=== PATIENT | male | born 1965 | race Caucasian/White ===

== ENCOUNTER → 2023-06-02 | Outpatient (CLI) | payer BC ==
[~2023-06-02] MED LIST: LOSA50TA28 PO; METF500T13 PO; PROA1AER2 INH; ROSU5TAB5 PO
[2023-06-02 08:02] LABS: BASO # 0.1 10^3/uL (0.0-0.2); BASO % 0.7 % (0.0-1.0); EOS # 0.1 10^3/uL (0.0-0.5); EOS % 0.7 % (0.0-3.0); HEMATOCRIT 45.1 % (42.0-52.0); HEMOGLOBIN 15.6 g/dl (13.5-17.5); LYMPH # 2.3 10^3/uL (1.5-5.0); LYMPH % 26.8 % (24.0-44.0); MEAN CORPUSCULAR HEMOGLOBIN 30.4 pg (27.0-33.0); MEAN CORPUSCULAR HGB CONC 34.6 g/dl (32.0-36.5); MEAN CORPUSCULAR VOLUME 87.9 fl (80.0-96.0); MONO # 0.5 10^3/uL (0.0-0.8); MONO % 5.4 % (2.0-8.0); NEUTROPHILS # 5.6 10^3/uL (1.5-8.5); PLATELET COUNT, AUTOMATED 172 10^3/uL (150-450); RED BLOOD COUNT 5.13 10^6/uL (4.30-6.10); WHITE BLOOD COUNT 8.5 10^3/uL (4.0-10.0)
[2023-06-02 08:28] LABS: BLOOD UREA NITROGEN 15 MG/DL (9-23); CARBON DIOXIDE LEVEL 28 MMOL/L (20-31); CHLORIDE LEVEL 103 MMOL/L (98-107); CREATININE FOR GFR 0.96 MG/DL (0.70-1.30); GLOMERULAR FILTRATION RATE > 60.0 (>56); GLUCOSE, FASTING 198 MG/DL (60-100); POTASSIUM SERUM 3.6 MMOL/L (3.5-5.1); SODIUM LEVEL 139 MMOL/L (136-145)
== END ==
LOC: M LAB 06:55
PROVIDERS: ATTEND Podiatrist
DX: M20.41 Other hammer toe(s) (acquired), right foot (principal)

== ENCOUNTER 2023-06-06 07:20 | Day surgery (SDC) | payer BC ==
[~2023-06-06] VITALS: Ht 188 cm; Wt 110.7 kg
[2023-06-06] MEDS ORDERED: ONDANSETRON 4MG 2ML VIAL As Ordered ONE (07:52)
[2023-06-06] MEDS ORDERED: LIDOCAINE 2% 100MG/5ML SDV (FOR ANES.) As Ordered ONE (07:52)
[2023-06-06] MEDS ORDERED: propofoL 200 MG/20 ML VIAL As Ordered ONE (07:52)
[2023-06-06] MEDS ORDERED: fentaNYL 100 MCG/2 ML INJECTION As Ordered ONE (07:52)
[2023-06-06] MEDS ORDERED: MIDAZOLAM INJ 2MG/2ML VIAL As Ordered ONE (07:52)
[2023-06-06] MEDS: LR 1,000 ML IV SCH (08:21)
[2023-06-06] MEDS: INSULIN LISPRO (NovoLOG) PER UNIT SC PRN (08:38)
[2023-06-06] MEDS: ceFAZolin SOD 2 GM in IV 1 EA IV ONE (09:14)
[2023-06-06] MEDS ORDERED: ACETAMINOPHEN 1000MG 100ML IV BAG As Ordered ONE (09:26)
[2023-06-06] MEDS: GENTAMICIN SULF 80MG/2ML VIAL As Ordered ONE (09:36)
[2023-06-06] MEDS ORDERED: KETOROLAC 60MG 2ML VIAL As Ordered ONE (09:36)
[2023-06-06] MEDS: LIDOCAINE 2% MDV 20ML VIAL As Ordered ONE (10:28)
[2023-06-06] MEDS ORDERED: PHENYLephrine 500MCG 5ML (100MCG/ML) SYRINGE As Ordered ONE (10:42)
[2023-06-06] MEDS ORDERED: ePHEDrine SULFATE 25 MG/5 ML(5MG/ML) SYRINGE As Ordered ONE (10:45)
[2023-06-06 11:44] VITALS: BP 128/74; TEMP 97.7; O2SAT 97
== END 2023-06-06 12:04 | disposition home or self-care (01) ==
LOC: M SDC 07:20
PROVIDERS: ATTEND Podiatrist
DX: M20.41 Other hammer toe(s) (acquired), right foot (principal); E11.9 Type 2 diabetes mellitus without complications; Z79.899 Other long term (current) drug therapy
CPT/HCPCS: 28270; 28285; 73630; 76000; 88300; J0131; J0665; J0690; J1100; J1580; J1815; J1885; J2250; J2371; J2405; J3010

== ENCOUNTER → 2024-03-04 | Outpatient (CLI) | payer BC ==
[~2024-03-04] MED LIST changes: +ROSU5TAB49 PO; -ROSU5TAB5 PO
== END ==
LOC: M SLEEP 20:00
PROVIDERS: ATTEND Physician Assistant
DX: R06.83 Snoring (principal)

== ENCOUNTER → 2024-04-15 | Outpatient (CLI) | payer BC | LOC: M WUC 14:32 | PROVIDERS: ATTEND Student in an Organized Health Care Education/Training Program | DX: J20.9 Acute bronchitis, unspecified (principal) ==

== ENCOUNTER 2024-06-10 19:04 | Emergency (ER) | payer BC ==
[~2024-06-10] VITALS: Ht 188 cm; Wt 106.7 kg
[2024-06-10] MEDS ORDERED: FLON1SPR NARES (19:15)
[2024-06-10] MEDS ORDERED: NS 500 ML IV ONE (19:40)
[2024-06-10] MEDS: ACETAMINOPHEN 325 MG TAB PO ONE (20:23)
[2024-06-10] MEDS: NS (Normal Saline) 0.9% 1,000 ML IV ONE (20:24)
[2024-06-10 20:28] LABS: BASO # 0.1 10^3/uL (0.0-0.2); BASO % 0.4 % (0.0-1.0); EOS # 0.1 10^3/uL (0.0-0.5); EOS % 0.4 % (0.0-3.0); HEMATOCRIT 40.4 % (42.0-52.0); HEMOGLOBIN 14.4 g/dl (13.5-17.5); LYMPH % 7.3 % (24.0-44.0); MEAN CORPUSCULAR HEMOGLOBIN 31.4 pg (27.0-33.0); MEAN CORPUSCULAR HGB CONC 35.6 g/dl (32.0-36.5); MONO # 0.3 10^3/uL (0.0-0.8); MONO % 2.3 % (2.0-8.0); NEUTROPHILS # 12.3 10^3/uL (1.5-8.5); NEUTROPHILS % 89.2 % (36.0-66.0); PLATELET COUNT, AUTOMATED 162 10^3/uL (150-450); RED BLOOD COUNT 4.59 10^6/uL (4.30-6.10); WHITE BLOOD COUNT 13.7 10^3/uL (4.0-10.0)
[2024-06-10 20:41] LABS: KETONE, URINE AUTO RFX 1+ mg/dL (NEGATIVE); LEUKOCYTE ESTERASE UR AUTO RFX NEGATIVE (NEGATIVE); NITRITE, URINE AUTO RFX NEGATIVE (NEGATIVE); RBC, URINE AUTO RFX 0 /HPF (0-3); SQUAM EPITHELIAL CELL UR AURFX 0 /HPF (0-6); WBC, URINE AUTO RFX 0 /HPF (0-3)
[2024-06-10 20:44] LABS: INR 1.09; PARTIAL THROMBOPLASTIN TIME 28.1 SECONDS (24.8-34.2); PROTHROMBIN TIME 14.4 SECONDS (12.5-14.5)
[2024-06-10 21:03] LABS: ALBUMIN 3.9 G/DL (3.2-5.2); ALKALINE PHOSPHATASE 40 U/L (40-129); ALT/SGPT 30 U/L (7.0-40); AST/SGOT 17 U/L (<34); BILIRUBIN,DIRECT 0.3 MG/DL (<0.4); BILIRUBIN,TOTAL 0.9 MG/DL (0.3-1.2); BLOOD UREA NITROGEN 17 MG/DL (9-23); CALCIUM LEVEL 8.9 MG/DL (8.3-10.6); CARBON DIOXIDE LEVEL 20 MMOL/L (20-31); CHLORIDE LEVEL 104 MMOL/L (98-107); CK-MB VALUE MASS < 1.0 NG/ML (<3.6); CPK CREATINE PHOSPHOKINASE 98 U/L (46-171); GLOMERULAR FILTRATION RATE > 60.0 (>49); GLUCOSE, FASTING 168 MG/DL (74-106); MB/CK RELATIVE INDEX 1.02 (< OR =4); POTASSIUM SERUM 3.5 MMOL/L (3.5-5.1); SODIUM LEVEL 140 MMOL/L (136-145); TOTAL PROTEIN 6.6 G/DL (5.7-8.2)
[2024-06-10 21:07] LABS: FREE T4 1.02 NG/DL (0.89-1.76)
[2024-06-10] MEDS ORDERED: ISOVUE-370 76% 100ML VIAL As Ordered ONE (21:18)
[2024-06-10] MEDS: cefTRIAXone SOD 2 GM in DEXTROSE 5% (D5W) ADV/MINI-BAG 50 ML IV ONE (21:43)
[2024-06-10] MEDS: NS 0.9% IV ONE (22:20)
[2024-06-10] MEDS: [UNRECOGNIZED DRUG - OTHER] IV ONE (22:20)
[2024-06-10 22:21] LABS: CK-MB VALUE MASS < 1.0 NG/ML (<3.6)
[2024-06-10 22:26] LABS: CPK CREATINE PHOSPHOKINASE 90 U/L (46-171); MB/CK RELATIVE INDEX 1.11 (< OR =4)
[2024-06-10] MEDS ORDERED: ALBU8.5H INH (23:40)
[2024-06-10] MEDS ORDERED: METF-838 PO (23:40)
[2024-06-10] MEDS ORDERED: CHOL125C5 PO (23:41)
[2024-06-10] MEDS ORDERED: RA B1TAB7 PO (23:41)
[2024-06-10] MEDS ORDERED: HOME MED LIST COMPLETE! XX SCH (23:45)
[2024-06-11] MEDS ORDERED: ALBUTEROL 90 MCG/ACT 8GM HFA INHALER INH PRN (04:45)
[2024-06-11] MEDS ORDERED: PILL CUTTER 1 EACH XX PRN (04:55)
[2024-06-11] MEDS: LR 1,000 ML IV ONE (07:20)
[2024-06-11] MEDS: metFORMIN XR 500MG TAB *GLUCOPHAGE XR PO SCH (08:11)
[2024-06-11 08:12] VITALS: BP 132/76
[2024-06-11] MEDS: ROSUVASTATIN 10 MG TAB (CRESTOR) PO SCH (08:12)
[2024-06-11] MEDS: LOSARTAN 50MG TABLET PO SCH (08:12)
[2024-06-11] MEDS: CEFDINIR 300 MG CAP (OMNICEF) PO SCH (08:12)
[2024-06-11] MEDS: FLUTICASONE PROP 0.05% NASAL SPRAY 16 GM (FLONASE) NARES SCH (08:18)
[2024-06-11] MEDS ORDERED: CEFD1CAP9 PO (12:47)
[2024-06-11 13:15] VITALS: BP 138/80; TEMP 98.4; O2SAT 96
== END 2024-06-11 13:22 | disposition home or self-care (01) ==
LOC: M ED 19:04
DX: A41.9 Sepsis, unspecified organism (principal); R50.9 Fever, unspecified; R00.0 Tachycardia, unspecified; I10 Essential (primary) hypertension; E11.9 Type 2 diabetes mellitus without complications; Z79.51 Long term (current) use of inhaled steroids; Z79.2 Long term (current) use of antibiotics; Z79.84 Long term (current) use of oral hypoglycemic drugs; Z79.899 Other long term (current) drug therapy
CPT/HCPCS: 71045; 71275; 80048; 80076; 81001; 82550; 82553; 83605; 83880; 84439; 84443; 84484; 85025; 85610; 85730; 87040; 87486; 87581; 87633; 87798; 93005; 93041; 94760; 96365; 96366; 99285; J0696; Q9967

== ENCOUNTER → 2025-01-31 | Outpatient (CLI) | payer BC ==
[~2025-01-31] MED LIST changes: +ALBU8.5H INH; +CEFD1CAP9 PO; +CHOL125C5 PO; +FLON1SPR NARES; +ISOVUE-370 76% 100 ML VIAL As Ordered ONE; +METF-838 PO; +RA B1TAB7 PO
== END ==
LOC: M RAD 13:45
DX: I71.21 Aneurysm of the ascending aorta, without rupture (principal)
CPT/HCPCS: 71275; 82565; Q9967